=== PATIENT | male | born 1965 | race Caucasian/White ===

== ENCOUNTER → 2017-06-03 | Outpatient (CLI) | payer MEDICARE, OTHER ==
[~2017-06-03] MED LIST: ACET325 PO; ALBU2.5V5 NEB; ALBU90OI INH; ALPR.5 PO; AMLO10 PO; Advair Hfa 230-12 GM; Advair Hfa 230-12 GM INH; Aranesp40 MCG/0.4 SC; Augmentin 875-1 EACH PO; B Complex #11 EACH PO; BIOTIN5000 MCG PO; CALCIUM ACETAT667 MG PO; CARV25 PO; CEPH500 PO; CETI5 PO; CINA30 PO; CLON.2 PO; COMBIVENT RESPIM4 GM INH; Calcium Acetat667 MG PO; Calphron667 MG PO; Carbidopa-Levo1 EAC1 PO; Cleocin HCl300 MG PO; DEXA4 PO; DICL250 PO; DIPH50 PO; DOXY100; DOXY100 PO; DULO30 PO; ESCI10 PO; FAMO20 PO; FURO20 PO; FURO80 PO; Ferrous Sulfat325 MG PO; Fosrenol1000 MG PO; GABA100 PO; GABA600 PO; HYDR100 PO; LABE100 PO; LEVCAR2510 PO; LORA1 PO; MUPI1NAS; NEPHRO-VITE RX1 EACH PO; NEPHROCAPS QT1 EACH PO; Norco 10-325 T1 EACH PO; Norco 5-325 Ta1 EACH PO; ONDA4ODT MM; OXYC5 PO; PRED10; PROM25 PO; Percocet 5-3251 EACH PO; Prednisone20 MG PO; RENVELA0.8 GM PO; ROPI2 PO; ROXICODONE5 MG PO; SEVEC800; SEVEC800 PO; SODBIC650 PO; TRAM50 PO; VANCOMYCIN; VELTASSA; Vibramycin100 MG PO; [UNRECOGNIZED DRUG - CODE] PO
== END | disposition home or self-care (01) ==
LOC: LAB SHORT 10:07
DX: N18.6 End stage renal disease (principal); E78.5 Hyperlipidemia, unspecified
CPT/HCPCS: 84132

== ENCOUNTER → 2017-06-06 | Outpatient (CLI) | payer MEDICARE, OTHER ==
[2017-06-06 16:37] LABS: Vancomycin, Random 21.7 ug/mL
== END | disposition home or self-care (01) ==
LOC: LAB SHORT 16:14
PROVIDERS: Internal Medicine Nephrology
DX: Z51.81 Encounter for therapeutic drug level monitoring (principal); Z79.899 Other long term (current) drug therapy
CPT/HCPCS: 80202

== ENCOUNTER → 2017-06-17 | Outpatient (CLI) | payer MEDICARE, OTHER ==
[2017-06-17 17:52] LABS: Vancomycin, Trough 21.8 ug/mL (5.0-10.0)
== END | disposition home or self-care (01) ==
LOC: LAB SHORT 17:21
PROVIDERS: Internal Medicine Nephrology
DX: N18.6 End stage renal disease (principal)
CPT/HCPCS: 80202

== ENCOUNTER → 2017-06-22 | Outpatient (CLI) | payer MEDICARE, OTHER ==
[2017-06-22 16:22] LABS: Vancomycin, Random 17.8 ug/mL
== END | disposition home or self-care (01) ==
LOC: LAB 15:59
PROVIDERS: Internal Medicine Nephrology
DX: N18.6 End stage renal disease (principal); A49.9 Bacterial infection, unspecified
CPT/HCPCS: 80202

== ENCOUNTER 2017-09-25 10:38 | Inpatient (IN) | payer MEDICARE, OTHER ==
[~2017-09-25] VITALS: Ht 167.6 cm; Wt 67.8 kg
[~2017-09-25 10:38] MED LIST changes: -ALBU2.5V5 NEB; -ALBU90OI INH; -Advair Hfa 230-12 GM; -Augmentin 875-1 EACH PO; -CALCIUM ACETAT667 MG PO; -Calphron667 MG PO; -Cleocin HCl300 MG PO; -DICL250 PO; -DOXY100; -DOXY100 PO; -GABA600 PO; -MUPI1NAS; -NEPHRO-VITE RX1 EACH PO; -Norco 10-325 T1 EACH PO; -PROM25 PO; -Prednisone20 MG PO; -ROXICODONE5 MG PO; -SEVEC800; -VELTASSA; -Vibramycin100 MG PO; -[UNRECOGNIZED DRUG - CODE] PO
[2017-09-25 11:18] LABS: BASOPHILS ABSOLUTE AUTO 0.05 K/mm3 (0.00-0.23); BASOPHILS PERCENT AUTO 0 % (0-2); EOSINOPHILS ABSOLUTE AUTO 0.39 K/mm3 (0.00-0.68); EOSINOPHILS PERCENT AUTO 3 % (0-6); Hematocrit 32.8 % (37.0-53.0); Hemoglobin 10.5 g/dL (13.5-17.5); IMMATURE GRAN ABSOLUTE AUTO 0.05 K/mm3 (0.00-0.10); IMMATURE GRAN PERCENT AUTO 0 % (0-1); LYMPHOCYTES ABSOLUTE AUTO 0.92 K/mm3 (0.84-5.20); LYMPHOCYTES PERCENT AUTO 7 % (21-46); MONOCYTES ABSOLUTE AUTO 1.66 K/mm3 (0.16-1.47); MONOCYTES PERCENT AUTO 13 % (4-13); Mean Corpuscular HGB 28.9 pg (26.0-34.0); Mean Corpuscular Volume 90 fL (80-100); Mean Platelet Volume 9.4 fL (9.1-12.4); NEUTROPHILS ABSOLUTE AUTO 9.59 K/mm3 (1.96-9.15); NEUTROPHILS PERCENT AUTO 76 % (41-73); Platelet Count 353 K/mm3 (150-400); RDW Coefficient Variation 14.1 % (11.7-14.2); RDW Standard Deviation 46.6 fL (35.1-46.3); Red Blood Cell Count 3.63 M/mm3 (4.30-5.90); White Blood Cell Count 12.66 K/mm3 (4.00-11.30)
[2017-09-25 11:30] LABS: International Normalized Ratio 1.1; Prothrombin Time Results 11.5 Sec (9.7-11.5)
[2017-09-25 11:48] LABS: Albumin, Blood 3.3 g/dL (3.4-5.0); Albumin/Globulin Ratio 0.8 (0.8-1.8); Bilirubin, Total 0.9 mg/dL (0.1-1.0); Bun/Creatinine Ratio 7.2 (12.0-20.0); Calcium, Blood 8.1 mg/dL (8.5-10.1); Creatinine, Blood 12.3 mg/dL (0.60-1.20); Globulin, Blood 4.1 g/dL (2.2-4.0); Potassium, Blood 6.9 mmol/L (3.5-5.5); Total Protein, Blood 7.4 g/dL (6.4-8.2)
[2017-09-26 03:55] LABS: BASOPHILS ABSOLUTE AUTO 0.05 K/mm3 (0.00-0.23); BASOPHILS PERCENT AUTO 0 % (0-2); EOSINOPHILS ABSOLUTE AUTO 0.22 K/mm3 (0.00-0.68); EOSINOPHILS PERCENT AUTO 2 % (0-6); Hematocrit 31.7 % (37.0-53.0); Hemoglobin 10.2 g/dL (13.5-17.5); IMMATURE GRAN ABSOLUTE AUTO 0.03 K/mm3 (0.00-0.10); IMMATURE GRAN PERCENT AUTO 0 % (0-1); LYMPHOCYTES ABSOLUTE AUTO 0.97 K/mm3 (0.84-5.20); LYMPHOCYTES PERCENT AUTO 9 % (21-46); MONOCYTES ABSOLUTE AUTO 1.47 K/mm3 (0.16-1.47); MONOCYTES PERCENT AUTO 13 % (4-13); Mean Corpuscular HGB 28.7 pg (26.0-34.0); Mean Corpuscular HGB Conc 32.2 g/dL (31.5-36.5); Mean Corpuscular Volume 89 fL (80-100); Mean Platelet Volume 9.3 fL (9.1-12.4); NEUTROPHILS ABSOLUTE AUTO 8.38 K/mm3 (1.96-9.15); NEUTROPHILS PERCENT AUTO 75 % (41-73); Platelet Count 362 K/mm3 (150-400); RDW Coefficient Variation 14.1 % (11.7-14.2); RDW Standard Deviation 45.9 fL (35.1-46.3); Red Blood Cell Count 3.55 M/mm3 (4.30-5.90); White Blood Cell Count 11.12 K/mm3 (4.00-11.30)
[2017-09-26 04:18] LABS: Magnesium, Blood 2.6 mg/dL (1.6-2.4)
[2017-09-26 04:23] LABS: Albumin, Blood 2.7 g/dL (3.4-5.0); Anion Gap 12 mmol/L (6-16); Blood Urea Nitrogen 64 mg/dL (8-24); Bun/Creatinine Ratio 6.9 (12.0-20.0); CO2, Blood 29 mmol/L (21-32); Calcium, Blood 7.6 mg/dL (8.5-10.1); Chloride, Blood 95 mmol/L (98-108); Creatinine, Blood 9.25 mg/dL (0.60-1.20); Glomerular Filtration Rate 6 (60-); Glucose, Blood 101 mg/dL (70-99); Phosphorus, Blood 7.7 mg/dL (2.5-4.9); Sodium, Blood 136 mmol/L (136-145)
[2017-09-26 04:39] LABS: Potassium, Blood 4.9 mmol/L (3.5-5.5)
[2017-09-26] MEDS ORDERED: OXYC5 PO (11:36)
[2017-09-28 09:02] LABS: HCV Non Reactive (NR)
== END 2017-09-26 12:45 | disposition home or self-care (01) | DRG 640 ==
LOC: ER 10:38 → PCU 13:21 → ICUE 13:21 → PCU 15:32 → ICUE 16:15
PROVIDERS: Internal Medicine; Internal Medicine Nephrology; Physician Assistant
PROC: 5A1D70Z Performance of Urinary Filtration, Intermittent, Less than 6 Hours Per Day (ICD-10-PCS; principal; 2017-09-25)
PROC: 5A1D70Z Performance of Urinary Filtration, Intermittent, Less than 6 Hours Per Day (ICD-10-PCS; 2017-09-26)
DX: E87.5 Hyperkalemia (principal); N18.6 End stage renal disease; G93.41 Metabolic encephalopathy; I12.0 Hypertensive chronic kidney disease with stage 5 chronic kidney disease or end stage renal disease; D63.1 Anemia in chronic kidney disease; Z99.2 Dependence on renal dialysis; S01.81XA Laceration without foreign body of other part of head, initial encounter; W19.XXXA Unspecified fall, initial encounter; G25.81 Restless legs syndrome; E83.39 Other disorders of phosphorus metabolism; E83.41 Hypermagnesemia; Z91.15 Patient's noncompliance with renal dialysis
CPT/HCPCS: 12011; 36415; 70450; 72125; 80048; 80053; 80069; 80074; 82947; 83735; 85025; 85610; 86706; 93005; 93010; 96374; 96375; 99285; J0360; J0610; J1815; J2310; J3010

== ENCOUNTER 2017-10-15 04:16 | Emergency (ER) | payer MEDICARE, OTHER ==
[~2017-10-15] VITALS: Ht 167.6 cm; Wt 70.3 kg
[2017-10-15 06:03] LABS: BASOPHILS ABSOLUTE AUTO 0.06 K/mm3 (0.00-0.23); BASOPHILS PERCENT AUTO 1 % (0-2); EOSINOPHILS ABSOLUTE AUTO 0.48 K/mm3 (0.00-0.68); EOSINOPHILS PERCENT AUTO 5 % (0-6); Hematocrit 28.8 % (37.0-53.0); IMMATURE GRAN ABSOLUTE AUTO 0.03 K/mm3 (0.00-0.10); IMMATURE GRAN PERCENT AUTO 0 % (0-1); LYMPHOCYTES ABSOLUTE AUTO 1.05 K/mm3 (0.84-5.20); LYMPHOCYTES PERCENT AUTO 12 % (21-46); MONOCYTES ABSOLUTE AUTO 0.81 K/mm3 (0.16-1.47); MONOCYTES PERCENT AUTO 9 % (4-13); Mean Corpuscular HGB 28.8 pg (26.0-34.0); Mean Corpuscular HGB Conc 31.3 g/dL (31.5-36.5); Mean Corpuscular Volume 92 fL (80-100); Mean Platelet Volume 9.7 fL (9.1-12.4); NEUTROPHILS ABSOLUTE AUTO 6.66 K/mm3 (1.96-9.15); NEUTROPHILS PERCENT AUTO 73 % (41-73); Platelet Count 348 K/mm3 (150-400); RDW Coefficient Variation 14.3 % (11.7-14.2); RDW Standard Deviation 48.2 fL (35.1-46.3); Red Blood Cell Count 3.13 M/mm3 (4.30-5.90); White Blood Cell Count 9.09 K/mm3 (4.00-11.30)
[2017-10-15 06:14] LABS: Albumin/Globulin Ratio 0.8 (0.8-1.8); Bilirubin, Total 0.4 mg/dL (0.1-1.0); Bun/Creatinine Ratio 10.5 (12.0-20.0); Calcium, Blood 8.3 mg/dL (8.5-10.1); Creatinine, Blood 4.39 mg/dL (0.60-1.20); Globulin, Blood 3.9 g/dL (2.2-4.0); Potassium, Blood 5.4 mmol/L (3.5-5.5); Total Protein, Blood 6.9 g/dL (6.4-8.2)
[2017-10-15] MEDS ORDERED: Augmentin 875-1 EACH PO (07:38)
== END 2017-10-15 07:53 | disposition left against medical advice (07) ==
LOC: ER 04:16
PROVIDERS: Emergency Medicine
DX: I16.0 Hypertensive urgency (principal); I12.0 Hypertensive chronic kidney disease with stage 5 chronic kidney disease or end stage renal disease; N18.6 End stage renal disease; K04.7 Periapical abscess without sinus; R09.02 Hypoxemia; J45.909 Unspecified asthma, uncomplicated; Z99.2 Dependence on renal dialysis; Z79.899 Other long term (current) drug therapy
CPT/HCPCS: 36415; 71046; 80053; 85025; 94644; 96374; 96375; 99284; J1100; J1200; J1940; J3490

== ENCOUNTER 2017-10-17 12:24 | Observation (INO) | payer MEDICARE, OTHER ==
[~2017-10-17] VITALS: Ht 167.6 cm; Wt 58.6 kg
[~2017-10-17 12:24] MED LIST changes: +Augmentin 875-1 EACH PO
[2017-10-17 13:18] LABS: BASOPHILS ABSOLUTE AUTO 0.08 K/mm3 (0.00-0.23); BASOPHILS PERCENT AUTO 1 % (0-2); EOSINOPHILS ABSOLUTE AUTO 0.61 K/mm3 (0.00-0.68); EOSINOPHILS PERCENT AUTO 5 % (0-6); Hematocrit 29.6 % (37.0-53.0); Hemoglobin 9.1 g/dL (13.5-17.5); IMMATURE GRAN ABSOLUTE AUTO 0.05 K/mm3 (0.00-0.10); IMMATURE GRAN PERCENT AUTO 0 % (0-1); LYMPHOCYTES ABSOLUTE AUTO 1.04 K/mm3 (0.84-5.20); LYMPHOCYTES PERCENT AUTO 9 % (21-46); MONOCYTES ABSOLUTE AUTO 1.34 K/mm3 (0.16-1.47); MONOCYTES PERCENT AUTO 12 % (4-13); Mean Corpuscular HGB 27.6 pg (26.0-34.0); Mean Corpuscular HGB Conc 30.7 g/dL (31.5-36.5); Mean Corpuscular Volume 90 fL (80-100); Mean Platelet Volume 9.5 fL (9.1-12.4); NEUTROPHILS ABSOLUTE AUTO 8.32 K/mm3 (1.96-9.15); NEUTROPHILS PERCENT AUTO 73 % (41-73); Platelet Count 394 K/mm3 (150-400); RDW Coefficient Variation 14.8 % (11.7-14.2); White Blood Cell Count 11.44 K/mm3 (4.00-11.30)
[2017-10-17 13:32] LABS: Troponin I 0.024 ng/mL (0.000-0.040)
[2017-10-17 13:44] LABS: Albumin, Blood 3.1 g/dL (3.4-5.0); Albumin/Globulin Ratio 0.8 (0.8-1.8); Bilirubin, Total 0.6 mg/dL (0.1-1.0); Bun/Creatinine Ratio 11.9 (12.0-20.0); Calcium, Blood 8.1 mg/dL (8.5-10.1); Creatinine, Blood 7.21 mg/dL (0.60-1.20); Globulin, Blood 3.9 g/dL (2.2-4.0); Potassium, Blood 6.1 mmol/L (3.5-5.5)
[2017-10-17 14:52] LABS: Source, Urine Catheter
[2017-10-17 14:56] LABS: Appearance, Urine Clear (Clear); Bilirubin, Urine Neg (Neg); Blood, Urine Neg (Neg); Color, Urine Yellow (P-Yellow); Glucose Qualitative, Urine 2+ (Neg); Ketones, Urine Neg (Neg); Leukocyte Esterase, Urine Neg (Neg); Nitrite, Urine Neg (Neg); Protein, Urine 3+ (Neg); Urobilinogen, Urine NORM (Normal)
[2017-10-17 15:18] LABS: U Amphetamine Screen Not Detected; U Barbituate Screen Not Detected; U Benzodiazapine Screen Not Detected; U Buprenorphine Screen Not Detected; U Cannabinoids Screen Not Detected; U Cocaine Screen Not Detected; U Methadone Screen Not Detected; U Methamphetamine Screen Not Detected; U Opiates Screen Not Detected; U Oxycodone Screen DETECTED; U Phencyclidine Screen Not Detected; U Propoxyphene Screen Not Detected
[2017-10-17 15:19] LABS: Bacteria Few /hpf; Red Blood Cells, Urine 0-2 /hpf (0-2); Squamous Epithelial Cells Few /hpf (Few); White Blood Cells, Urine 0-2 /hpf (0-5)
[2017-10-17] MEDS ORDERED: CARV25 PO (19:33)
[2017-10-17] MEDS ORDERED: SEVEC800 (19:35)
[2017-10-17] MEDS ORDERED: HYDR100 PO (19:36)
[2017-10-17] MEDS ORDERED: FURO80 PO (19:37)
[2017-10-18 05:02] LABS: Hematocrit 27.8 % (37.0-53.0); Hemoglobin 8.8 g/dL (13.5-17.5)
[2017-10-18 05:29] LABS: Magnesium, Blood 2.5 mg/dL (1.6-2.4)
[2017-10-18 05:30] LABS: Albumin, Blood 2.8 g/dL (3.4-5.0); Anion Gap 10 mmol/L (6-16); Blood Urea Nitrogen 62 mg/dL (8-24); Bun/Creatinine Ratio 10.4 (12.0-20.0); CO2, Blood 30 mmol/L (21-32); Calcium, Blood 8.1 mg/dL (8.5-10.1); Chloride, Blood 95 mmol/L (98-108); Creatinine, Blood 5.97 mg/dL (0.60-1.20); Glomerular Filtration Rate 11 (60-); Glucose, Blood 114 mg/dL (70-99); Phosphorus, Blood 5.5 mg/dL (2.5-4.9); Sodium, Blood 135 mmol/L (136-145)
[2017-10-19 08:39] LABS: Hematocrit 32.1 % (37.0-53.0); Hemoglobin 10.4 g/dL (13.5-17.5)
[2017-10-19 08:56] LABS: Anion Gap 9 mmol/L (6-16); Blood Urea Nitrogen 69 mg/dL (8-24); Bun/Creatinine Ratio 10.7 (12.0-20.0); CO2, Blood 28 mmol/L (21-32); Calcium, Blood 8.3 mg/dL (8.5-10.1); Chloride, Blood 95 mmol/L (98-108); Creatinine, Blood 6.43 mg/dL (0.60-1.20); Glomerular Filtration Rate 10 (60-); Glucose, Blood 120 mg/dL (70-99); Magnesium, Blood 2.6 mg/dL (1.6-2.4); Phosphorus, Blood 5.5 mg/dL (2.5-4.9); Potassium, Blood 5.2 mmol/L (3.5-5.5); Sodium, Blood 132 mmol/L (136-145)
[2017-10-19] MEDS ORDERED: DOXY100 PO (11:06)
[2017-10-25] MEDS ORDERED: CEPH500 PO (04:32)
[2017-10-25] MEDS ORDERED: DOXY100 (04:51)
== END 2017-10-19 13:10 | disposition home or self-care (01) ==
LOC: ER 12:24 → MEDS 16:00
PROVIDERS: Emergency Medicine; Internal Medicine; Internal Medicine Nephrology
DX: E87.5 Hyperkalemia (principal); E87.70 Fluid overload, unspecified; I12.0 Hypertensive chronic kidney disease with stage 5 chronic kidney disease or end stage renal disease; N18.6 End stage renal disease; D63.1 Anemia in chronic kidney disease; G92 Toxic encephalopathy; T40.2X5A Adverse effect of other opioids, initial encounter; G25.2 Other specified forms of tremor; L13.1 Subcorneal pustular dermatitis; K12.2 Cellulitis and abscess of mouth; J45.909 Unspecified asthma, uncomplicated; Z88.8 Allergy status to other drugs, medicaments and biological substances; Z99.2 Dependence on renal dialysis; Z79.899 Other long term (current) drug therapy
CPT/HCPCS: 36415; 36430; 71046; 80053; 80069; 81001; 83735; 83880; 84484; 85014; 85018; 85025; 86850; 86900; 86901; 86923; 87086; 93005; 93010; 96372; 96374; 99285; G0257; G0378; J0881; J1644; J2310; P9016

== ENCOUNTER 2017-10-28 01:31 | Emergency (ER) | payer MEDICARE, OTHER ==
[~2017-10-28] VITALS: Ht 167.6 cm; Wt 69.8 kg
[~2017-10-28 01:31] MED LIST changes: +DOXY100; +DOXY100 PO; +SEVEC800
[2017-10-28 02:13] LABS: BASOPHILS ABSOLUTE AUTO 0.04 K/mm3 (0.00-0.23); BASOPHILS PERCENT AUTO 0 % (0-2); EOSINOPHILS PERCENT AUTO 8 % (0-6); Hematocrit 32.1 % (37.0-53.0); Hemoglobin 9.9 g/dL (13.5-17.5); IMMATURE GRAN PERCENT AUTO 1 % (0-1); LYMPHOCYTES ABSOLUTE AUTO 1.42 K/mm3 (0.84-5.20); LYMPHOCYTES PERCENT AUTO 14 % (21-46); MONOCYTES ABSOLUTE AUTO 1.43 K/mm3 (0.16-1.47); MONOCYTES PERCENT AUTO 14 % (4-13); Mean Corpuscular HGB Conc 30.8 g/dL (31.5-36.5); Mean Corpuscular Volume 91 fL (80-100); Mean Platelet Volume 9.7 fL (9.1-12.4); NEUTROPHILS PERCENT AUTO 63 % (41-73); Platelet Count 259 K/mm3 (150-400); RDW Coefficient Variation 15.2 % (11.7-14.2); RDW Standard Deviation 50.1 fL (35.1-46.3); Red Blood Cell Count 3.53 M/mm3 (4.30-5.90); White Blood Cell Count 10.29 K/mm3 (4.00-11.30)
[2017-10-28 02:24] LABS: Albumin, Blood 3.2 g/dL (3.4-5.0); Albumin/Globulin Ratio 0.8 (0.8-1.8); Bilirubin, Total 0.6 mg/dL (0.1-1.0); Bun/Creatinine Ratio 7.4 (12.0-20.0); Creatinine, Blood 4.17 mg/dL (0.60-1.20); Globulin, Blood 3.8 g/dL (2.2-4.0); Potassium, Blood 5.2 mmol/L (3.5-5.5)
[2017-10-28] MEDS ORDERED: Cleocin HCl300 MG PO (04:36)
== END 2017-10-28 04:48 | disposition home or self-care (01) ==
LOC: ER 01:31
PROVIDERS: Emergency Medicine
DX: K04.7 Periapical abscess without sinus (principal); M27.2 Inflammatory conditions of jaws; I10 Essential (primary) hypertension; J45.909 Unspecified asthma, uncomplicated; Z88.8 Allergy status to other drugs, medicaments and biological substances; Z79.899 Other long term (current) drug therapy; Z99.2 Dependence on renal dialysis
CPT/HCPCS: 80053; 85025; J0171; J1200; J2930; J3490

== ENCOUNTER 2017-11-12 23:56 | Emergency (ER) | payer MEDICARE, OTHER ==
[~2017-11-12] VITALS: Ht 167.6 cm; Wt 69.8 kg
[~2017-11-12 23:56] MED LIST changes: +Cleocin HCl300 MG PO
[2017-11-13] MEDS ORDERED: FURO80 PO (00:10)
[2017-11-13] MEDS ORDERED: NEPHRO-VITE RX1 EACH PO (00:11)
[2017-11-13] MEDS ORDERED: Prednisone20 MG PO (00:15)
== END 2017-11-13 00:28 | disposition home or self-care (01) ==
LOC: ER 23:56
DX: L25.9 Unspecified contact dermatitis, unspecified cause (principal); I10 Essential (primary) hypertension; J45.909 Unspecified asthma, uncomplicated; Z88.1 Allergy status to other antibiotic agents; Z91.048 Other nonmedicinal substance allergy status; Z88.8 Allergy status to other drugs, medicaments and biological substances; Z79.899 Other long term (current) drug therapy; Z99.2 Dependence on renal dialysis
CPT/HCPCS: 96372; 99283; J1100

== ENCOUNTER 2017-11-17 11:55 | Emergency (ER) | payer MEDICARE, OTHER ==
[~2017-11-17] VITALS: Ht 167.6 cm; Wt 69.8 kg
[~2017-11-17 11:55] MED LIST changes: +NEPHRO-VITE RX1 EACH PO; +Prednisone20 MG PO
[2017-11-17 12:55] LABS: BASOPHILS ABSOLUTE AUTO 0.02 K/mm3 (0.00-0.23); BASOPHILS PERCENT AUTO 0 % (0-2); EOSINOPHILS PERCENT AUTO 0 % (0-6); Hematocrit 31.4 % (37.0-53.0); Hemoglobin 9.6 g/dL (13.5-17.5); IMMATURE GRAN ABSOLUTE AUTO 0.05 K/mm3 (0.00-0.10); IMMATURE GRAN PERCENT AUTO 1 % (0-1); LYMPHOCYTES ABSOLUTE AUTO 0.55 K/mm3 (0.84-5.20); LYMPHOCYTES PERCENT AUTO 6 % (21-46); MONOCYTES PERCENT AUTO 6 % (4-13); Mean Corpuscular HGB 28.1 pg (26.0-34.0); Mean Corpuscular HGB Conc 30.6 g/dL (31.5-36.5); Mean Corpuscular Volume 92 fL (80-100); Mean Platelet Volume 9.4 fL (9.1-12.4); NEUTROPHILS ABSOLUTE AUTO 7.82 K/mm3 (1.96-9.15); NEUTROPHILS PERCENT AUTO 87 % (41-73); Platelet Count 326 K/mm3 (150-400); RDW Coefficient Variation 15.7 % (11.7-14.2); RDW Standard Deviation 52.2 fL (35.1-46.3); Red Blood Cell Count 3.42 M/mm3 (4.30-5.90); White Blood Cell Count 8.94 K/mm3 (4.00-11.30)
[2017-11-17 13:15] LABS: Albumin, Blood 3.7 g/dL (3.4-5.0); Bilirubin, Total 0.5 mg/dL (0.1-1.0); Calcium, Blood 8.8 mg/dL (8.5-10.1); Creatinine, Blood 5.2 mg/dL (0.60-1.20); Globulin, Blood 3.7 g/dL (2.2-4.0); Potassium, Blood 5.4 mmol/L (3.5-5.5); Total Protein, Blood 7.4 g/dL (6.4-8.2); Troponin I 0.111 ng/mL (0.000-0.040)
== END 2017-11-17 15:46 | disposition left against medical advice (07) ==
LOC: ER 11:55
PROVIDERS: Emergency Medicine
DX: R07.9 Chest pain, unspecified (principal); R79.89 Other specified abnormal findings of blood chemistry; Z88.1 Allergy status to other antibiotic agents; Z88.8 Allergy status to other drugs, medicaments and biological substances; Z79.899 Other long term (current) drug therapy; Z79.891 Long term (current) use of opiate analgesic; I10 Essential (primary) hypertension; J45.909 Unspecified asthma, uncomplicated
CPT/HCPCS: 36415; 71046; 80053; 84484; 85025; 93005; 93010; 99284

== ENCOUNTER 2017-11-22 01:35 | Observation (INO) | payer MEDICARE, OTHER ==
[~2017-11-22] VITALS: Ht 170.2 cm; Wt 73.9 kg
[2017-11-22 02:36] LABS: BASOPHILS ABSOLUTE AUTO 0.01 K/mm3 (0.00-0.23); BASOPHILS PERCENT AUTO 0 % (0-2); EOSINOPHILS ABSOLUTE AUTO 0.01 K/mm3 (0.00-0.68); EOSINOPHILS PERCENT AUTO 0 % (0-6); Hematocrit 31.5 % (37.0-53.0); Hemoglobin 9.7 g/dL (13.5-17.5); IMMATURE GRAN PERCENT AUTO 2 % (0-1); LYMPHOCYTES ABSOLUTE AUTO 0.39 K/mm3 (0.84-5.20); LYMPHOCYTES PERCENT AUTO 3 % (21-46); MONOCYTES ABSOLUTE AUTO 0.79 K/mm3 (0.16-1.47); MONOCYTES PERCENT AUTO 7 % (4-13); Mean Corpuscular HGB 28.5 pg (26.0-34.0); Mean Corpuscular HGB Conc 30.8 g/dL (31.5-36.5); Mean Corpuscular Volume 93 fL (80-100); Mean Platelet Volume 9.7 fL (9.1-12.4); NEUTROPHILS ABSOLUTE AUTO 10.43 K/mm3 (1.96-9.15); NEUTROPHILS PERCENT AUTO 88 % (41-73); Platelet Count 245 K/mm3 (150-400); RDW Coefficient Variation 16.5 % (11.7-14.2); RDW Standard Deviation 55.8 fL (35.1-46.3); White Blood Cell Count 11.83 K/mm3 (4.00-11.30)
[2017-11-22 02:49] LABS: Albumin, Blood 3.4 g/dL (3.4-5.0); Bilirubin, Total 0.4 mg/dL (0.1-1.0); Bun/Creatinine Ratio 8.7 (12.0-20.0); Calcium, Blood 7.6 mg/dL (8.5-10.1); Creatinine, Blood 4.93 mg/dL (0.60-1.20); Globulin, Blood 3.5 g/dL (2.2-4.0); Potassium, Blood 5.6 mmol/L (3.5-5.5); Total Protein, Blood 6.9 g/dL (6.4-8.2); Troponin I 0.089 ng/mL (0.000-0.040)
[2017-11-22 08:42] LABS: Albumin, Blood 3.2 g/dL (3.4-5.0); Anion Gap 10 mmol/L (6-16); Blood Urea Nitrogen 52 mg/dL (8-24); Bun/Creatinine Ratio 9.6 (12.0-20.0); CO2, Blood 31 mmol/L (21-32); Calcium, Blood 8.1 mg/dL (8.5-10.1); Chloride, Blood 97 mmol/L (98-108); Creatinine, Blood 5.39 mg/dL (0.60-1.20); Glomerular Filtration Rate 12 (60-); Glucose, Blood 148 mg/dL (70-99); Potassium, Blood 5.6 mmol/L (3.5-5.5); Sodium, Blood 138 mmol/L (136-145)
[2017-11-23 04:41] LABS: BASOPHILS ABSOLUTE AUTO 0.02 K/mm3 (0.00-0.23); BASOPHILS PERCENT AUTO 0 % (0-2); EOSINOPHILS ABSOLUTE AUTO 0.11 K/mm3 (0.00-0.68); EOSINOPHILS PERCENT AUTO 1 % (0-6); Hematocrit 34.4 % (37.0-53.0); Hemoglobin 10.5 g/dL (13.5-17.5); IMMATURE GRAN ABSOLUTE AUTO 0.18 K/mm3 (0.00-0.10); IMMATURE GRAN PERCENT AUTO 2 % (0-1); LYMPHOCYTES ABSOLUTE AUTO 1.69 K/mm3 (0.84-5.20); LYMPHOCYTES PERCENT AUTO 15 % (21-46); MONOCYTES ABSOLUTE AUTO 1.73 K/mm3 (0.16-1.47); MONOCYTES PERCENT AUTO 16 % (4-13); Mean Corpuscular HGB 28.3 pg (26.0-34.0); Mean Corpuscular HGB Conc 30.5 g/dL (31.5-36.5); Mean Corpuscular Volume 93 fL (80-100); Mean Platelet Volume 9.6 fL (9.1-12.4); NEUTROPHILS PERCENT AUTO 67 % (41-73); Platelet Count 236 K/mm3 (150-400); RDW Coefficient Variation 16.6 % (11.7-14.2); RDW Standard Deviation 56.4 fL (35.1-46.3); Red Blood Cell Count 3.71 M/mm3 (4.30-5.90); White Blood Cell Count 11.13 K/mm3 (4.00-11.30)
[2017-11-23 05:08] LABS: Albumin, Blood 3.5 g/dL (3.4-5.0); Anion Gap 11 mmol/L (6-16); Blood Urea Nitrogen 44 mg/dL (8-24); Bun/Creatinine Ratio 8.7 (12.0-20.0); CO2, Blood 32 mmol/L (21-32); Calcium, Blood 8.8 mg/dL (8.5-10.1); Chloride, Blood 95 mmol/L (98-108); Creatinine, Blood 5.04 mg/dL (0.60-1.20); Glomerular Filtration Rate 13 (60-); Glucose, Blood 92 mg/dL (70-99); Magnesium, Blood 2.4 mg/dL (1.6-2.4); Phosphorus, Blood 6.6 mg/dL (2.5-4.9); Potassium, Blood 5.9 mmol/L (3.5-5.5); Sodium, Blood 138 mmol/L (136-145)
== END 2017-11-23 10:30 | disposition home or self-care (01) ==
LOC: ER 01:35 → MEDS 01:36 → PCU 01:36 → ER 04:05 → MEDS 04:05 → PCU 04:05 → MEDS 04:12 → PCU 04:13 → MEDS 17:27 → PCU 17:27 → MEDS 23:00 → ENPENDDIS 11-23 08:00 → MEDS 11-23 10:30
PROVIDERS: Emergency Medicine; Family Medicine; Internal Medicine Nephrology
DX: L02.11 Cutaneous abscess of neck (principal); R42 Dizziness and giddiness; I12.0 Hypertensive chronic kidney disease with stage 5 chronic kidney disease or end stage renal disease; N18.6 End stage renal disease; R60.0 Localized edema; D63.1 Anemia in chronic kidney disease; E87.5 Hyperkalemia; R55 Syncope and collapse; L73.1 Pseudofolliculitis barbae; E21.3 Hyperparathyroidism, unspecified; Z98.890 Other specified postprocedural states; Z88.1 Allergy status to other antibiotic agents; Z88.8 Allergy status to other drugs, medicaments and biological substances; Z79.899 Other long term (current) drug therapy; J45.909 Unspecified asthma, uncomplicated; Z99.2 Dependence on renal dialysis
CPT/HCPCS: 36415; 80053; 80069; 83036; 83735; 84443; 84484; 85014; 85018; 85025; 93005; 93010; 99285; G0257; G0378; J0610; J0881; J1815; Q0163

== ENCOUNTER 2017-12-20 06:48 | Emergency (ER) | payer MEDICARE, OTHER ==
[~2017-12-20] VITALS: Ht 167.6 cm; Wt 70.8 kg
[2017-12-20] MEDS ORDERED: MUPI1NAS (07:00)
== END 2017-12-20 07:15 | disposition home or self-care (01) ==
LOC: ER 06:48
DX: J34.0 Abscess, furuncle and carbuncle of nose (principal); Z88.8 Allergy status to other drugs, medicaments and biological substances; Z88.1 Allergy status to other antibiotic agents; Z79.899 Other long term (current) drug therapy; Z79.891 Long term (current) use of opiate analgesic; Z79.2 Long term (current) use of antibiotics; I10 Essential (primary) hypertension; J45.909 Unspecified asthma, uncomplicated
CPT/HCPCS: 99281

== ENCOUNTER 2018-01-13 12:00 | Observation (INO) | payer MEDICARE, OTHER ==
[~2018-01-13] VITALS: Ht 165.1 cm; Wt 66.9 kg
[~2018-01-13 12:00] MED LIST changes: +CALCIUM ACETAT667 MG PO; +MUPI1NAS; +Norco 10-325 T1 EACH PO; +ROXICODONE5 MG PO; +[UNRECOGNIZED DRUG - CODE] PO
[2018-01-13] MEDS ORDERED: CINA30 PO (12:27)
[2018-01-13] MEDS ORDERED: Calphron667 MG PO (12:29)
[2018-01-13] MEDS ORDERED: Advair Hfa 230-12 GM (12:30)
[2018-01-13] MEDS ORDERED: NEPHRO-VITE RX1 EACH PO (12:31)
[2018-01-13 12:36] LABS: BASOPHILS ABSOLUTE AUTO 0.05 K/mm3 (0.00-0.23); BASOPHILS PERCENT AUTO 1 % (0-2); EOSINOPHILS ABSOLUTE AUTO 0.54 K/mm3 (0.00-0.68); EOSINOPHILS PERCENT AUTO 5 % (0-6); Hematocrit 28.5 % (37.0-53.0); IMMATURE GRAN ABSOLUTE AUTO 0.04 K/mm3 (0.00-0.10); IMMATURE GRAN PERCENT AUTO 0 % (0-1); LYMPHOCYTES ABSOLUTE AUTO 1.04 K/mm3 (0.84-5.20); LYMPHOCYTES PERCENT AUTO 9 % (21-46); MONOCYTES ABSOLUTE AUTO 1.69 K/mm3 (0.16-1.47); MONOCYTES PERCENT AUTO 15 % (4-13); Mean Corpuscular HGB 27.4 pg (26.0-34.0); Mean Corpuscular HGB Conc 31.6 g/dL (31.5-36.5); Mean Corpuscular Volume 87 fL (80-100); Mean Platelet Volume 9.5 fL (9.1-12.4); NEUTROPHILS PERCENT AUTO 70 % (41-73); Platelet Count 384 K/mm3 (150-400); RDW Coefficient Variation 16.1 % (11.7-14.2); RDW Standard Deviation 51.3 fL (35.1-46.3); Red Blood Cell Count 3.29 M/mm3 (4.30-5.90); White Blood Cell Count 11.06 K/mm3 (4.00-11.30)
[2018-01-13 12:53] LABS: Albumin/Globulin Ratio 0.7 (0.8-1.8); Bilirubin, Total 0.4 mg/dL (0.1-1.0); Bun/Creatinine Ratio 6.9 (12.0-20.0); Calcium, Blood 8.9 mg/dL (8.5-10.1); Creatinine, Blood 6.93 mg/dL (0.60-1.20); Globulin, Blood 4.3 g/dL (2.2-4.0); Total Protein, Blood 7.3 g/dL (6.4-8.2); Troponin I 0.311 ng/mL (0.000-0.040)
[2018-01-14 01:48] LABS: Hematocrit 28.6 % (37.0-53.0); Hemoglobin 8.7 g/dL (13.5-17.5)
[2018-01-14 02:05] LABS: Albumin, Blood 2.4 g/dL (3.4-5.0); Anion Gap 9 mmol/L (6-16); Blood Urea Nitrogen 38 mg/dL (8-24); Bun/Creatinine Ratio 6.7 (12.0-20.0); CO2, Blood 32 mmol/L (21-32); Calcium, Blood 8.2 mg/dL (8.5-10.1); Chloride, Blood 96 mmol/L (98-108); Creatinine, Blood 5.63 mg/dL (0.60-1.20); Glomerular Filtration Rate 11 (60-); Glucose, Blood 123 mg/dL (70-99); Magnesium, Blood 2.2 mg/dL (1.6-2.4); Phosphorus, Blood 5.1 mg/dL (2.5-4.9); Potassium, Blood 4.6 mmol/L (3.5-5.5); Sodium, Blood 137 mmol/L (136-145); Troponin I 0.251 ng/mL (0.000-0.040)
== END 2018-01-14 16:10 | disposition home or self-care (01) ==
LOC: ER 12:00 → MEDS 12:01 → ENPENDDIS 01-14 14:00 → MEDS 01-14 16:10
PROVIDERS: Hospitalist; Physician Assistant
DX: I13.2 Hypertensive heart and chronic kidney disease with heart failure and with stage 5 chronic kidney disease, or end stage renal disease (principal); I50.21 Acute systolic (congestive) heart failure; N18.6 End stage renal disease; E87.70 Fluid overload, unspecified; G89.29 Other chronic pain; Z88.5 Allergy status to narcotic agent; Z88.1 Allergy status to other antibiotic agents; Z88.8 Allergy status to other drugs, medicaments and biological substances; Z79.899 Other long term (current) drug therapy
CPT/HCPCS: 36415; 71046; 80048; 80053; 80069; 83735; 83880; 84484; 85014; 85018; 85025; 93005; 93010; 94640; 94760; 96372; 99284-25; G0257; G0378; J0881; J1650; J7030

== ENCOUNTER 2018-02-10 16:27 | Inpatient (IN) | payer MEDICARE, OTHER ==
[~2018-02-10] VITALS: Ht 167.6 cm; Wt 68.0 kg
[~2018-02-10 16:27] MED LIST changes: +Advair Hfa 230-12 GM; +Calphron667 MG PO
[2018-02-10 16:45] LABS: Chloride (POC) 88 mmol/L (98-108); Creatinine (POC) 7.6 mg/dL (0.8-1.3); Glucose (ISTAT POC) 116 mg/dL (70-99); Hemoglobin (POC) 10.2 g/dL (13.5-17.5); Sodium (POC) 129 mmol/L (135-148); Total CO2 (POC) 31 mmol/L (21-32)
[2018-02-10 16:55] LABS: BASOPHILS ABSOLUTE AUTO 0.09 K/mm3 (0.00-0.23); BASOPHILS PERCENT AUTO 1 % (0-2); EOSINOPHILS ABSOLUTE AUTO 0.33 K/mm3 (0.00-0.68); EOSINOPHILS PERCENT AUTO 2 % (0-6); Hematocrit 30.5 % (37.0-53.0); Hemoglobin 9.4 g/dL (13.5-17.5); IMMATURE GRAN ABSOLUTE AUTO 0.07 K/mm3 (0.00-0.10); IMMATURE GRAN PERCENT AUTO 0 % (0-1); LYMPHOCYTES ABSOLUTE AUTO 0.77 K/mm3 (0.84-5.20); LYMPHOCYTES PERCENT AUTO 5 % (21-46); MONOCYTES ABSOLUTE AUTO 1.86 K/mm3 (0.16-1.47); MONOCYTES PERCENT AUTO 11 % (4-13); Mean Corpuscular HGB 26.4 pg (26.0-34.0); Mean Corpuscular HGB Conc 30.8 g/dL (31.5-36.5); Mean Corpuscular Volume 86 fL (80-100); Mean Platelet Volume 9.3 fL (9.1-12.4); NEUTROPHILS ABSOLUTE AUTO 13.34 K/mm3 (1.96-9.15); NEUTROPHILS PERCENT AUTO 81 % (41-73); Platelet Count 309 K/mm3 (150-400); RDW Coefficient Variation 17.2 % (11.7-14.2); Red Blood Cell Count 3.56 M/mm3 (4.30-5.90); White Blood Cell Count 16.46 K/mm3 (4.00-11.30)
[2018-02-10 17:15] LABS: Albumin, Blood 3.1 g/dL (3.4-5.0); Albumin/Globulin Ratio 0.7 (0.8-1.8); Bun/Creatinine Ratio 7.8 (12.0-20.0); Calcium, Blood 8.8 mg/dL (8.5-10.1); Creatinine, Blood 7.27 mg/dL (0.60-1.20); Globulin, Blood 4.4 g/dL (2.2-4.0); Total Protein, Blood 7.5 g/dL (6.4-8.2)
[2018-02-10 18:05] LABS: Magnesium, Blood 2.5 mg/dL (1.6-2.4); Phosphorus, Blood 6.7 mg/dL (2.5-4.9)
[2018-02-10 23:52] LABS: Bun/Creatinine Ratio 7.5 (12.0-20.0); Calcium, Blood 8.4 mg/dL (8.5-10.1); Creatinine, Blood 5.77 mg/dL (0.60-1.20); Potassium, Blood 4.5 mmol/L (3.5-5.5)
[2018-02-11] LABS: Troponin I 0.612 ng/mL (0.000-0.040)
[2018-02-11 04:51] LABS: BASOPHILS ABSOLUTE AUTO 0.09 K/mm3 (0.00-0.23); BASOPHILS PERCENT AUTO 1 % (0-2); EOSINOPHILS PERCENT AUTO 4 % (0-6); Hematocrit 27.6 % (37.0-53.0); Hemoglobin 8.3 g/dL (13.5-17.5); IMMATURE GRAN ABSOLUTE AUTO 0.04 K/mm3 (0.00-0.10); IMMATURE GRAN PERCENT AUTO 0 % (0-1); LYMPHOCYTES ABSOLUTE AUTO 0.75 K/mm3 (0.84-5.20); LYMPHOCYTES PERCENT AUTO 7 % (21-46); MONOCYTES ABSOLUTE AUTO 1.47 K/mm3 (0.16-1.47); MONOCYTES PERCENT AUTO 14 % (4-13); Mean Corpuscular HGB 26.6 pg (26.0-34.0); Mean Corpuscular HGB Conc 30.1 g/dL (31.5-36.5); Mean Platelet Volume 9.6 fL (9.1-12.4); NEUTROPHILS ABSOLUTE AUTO 7.73 K/mm3 (1.96-9.15); NEUTROPHILS PERCENT AUTO 74 % (41-73); Platelet Count 276 K/mm3 (150-400); RDW Coefficient Variation 17.2 % (11.7-14.2); RDW Standard Deviation 55.5 fL (35.1-46.3); Red Blood Cell Count 3.12 M/mm3 (4.30-5.90); White Blood Cell Count 10.48 K/mm3 (4.00-11.30)
[2018-02-11 05:00] LABS: Mean Corpuscular Volume 89 fL (80-100)
[2018-02-11 05:14] LABS: Albumin, Blood 2.6 g/dL (3.4-5.0); Anion Gap 6 mmol/L (6-16); Blood Urea Nitrogen 49 mg/dL (8-24); Bun/Creatinine Ratio 7.8 (12.0-20.0); CO2, Blood 35 mmol/L (21-32); Calcium, Blood 8.2 mg/dL (8.5-10.1); Chloride, Blood 94 mmol/L (98-108); Creatinine, Blood 6.31 mg/dL (0.60-1.20); Glomerular Filtration Rate 10 (60-); Glucose, Blood 114 mg/dL (70-99); Magnesium, Blood 2.4 mg/dL (1.6-2.4); Phosphorus, Blood 6.7 mg/dL (2.5-4.9); Potassium, Blood 5.1 mmol/L (3.5-5.5); Sodium, Blood 135 mmol/L (136-145)
[2018-02-12 04:37] LABS: Hematocrit 28.5 % (37.0-53.0); Hemoglobin 8.5 g/dL (13.5-17.5)
[2018-02-12 04:59] LABS: Albumin, Blood 2.9 g/dL (3.4-5.0); Anion Gap 10 mmol/L (6-16); Blood Urea Nitrogen 54 mg/dL (8-24); Bun/Creatinine Ratio 8.7 (12.0-20.0); CO2, Blood 31 mmol/L (21-32); Calcium, Blood 8.1 mg/dL (8.5-10.1); Chloride, Blood 95 mmol/L (98-108); Creatinine, Blood 6.18 mg/dL (0.60-1.20); Glomerular Filtration Rate 10 (60-); Glucose, Blood 102 mg/dL (70-99); Magnesium, Blood 2.5 mg/dL (1.6-2.4); Phosphorus, Blood 5.8 mg/dL (2.5-4.9); Sodium, Blood 136 mmol/L (136-145)
[2018-02-13 10:01] LABS: Hematocrit 28.7 % (37.0-53.0); Hemoglobin 8.9 g/dL (13.5-17.5)
[2018-02-13] MEDS ORDERED: FURO80 PO (10:14)
[2018-02-13 11:02] LABS: Albumin, Blood 2.8 g/dL (3.4-5.0); Anion Gap 12 mmol/L (6-16); Blood Urea Nitrogen 56 mg/dL (8-24); Bun/Creatinine Ratio 9.6 (12.0-20.0); CO2, Blood 29 mmol/L (21-32); Calcium, Blood 8.2 mg/dL (8.5-10.1); Chloride, Blood 93 mmol/L (98-108); Creatinine, Blood 5.85 mg/dL (0.60-1.20); Glomerular Filtration Rate 11 (60-); Glucose, Blood 188 mg/dL (70-99); Magnesium, Blood 2.4 mg/dL (1.6-2.4); Potassium, Blood 4.7 mmol/L (3.5-5.5); Sodium, Blood 134 mmol/L (136-145)
== END 2018-02-13 13:29 | disposition home or self-care (01) | DRG 291 ==
LOC: ER 16:27 → MEDS 16:28 → ER 17:50 → MEDS 18:24 → ENPENDDIS 02-13 10:03 → MEDS 02-13 13:29
PROVIDERS: Emergency Medicine; Hospitalist; Internal Medicine Nephrology
PROC: 5A1D70Z Performance of Urinary Filtration, Intermittent, Less than 6 Hours Per Day (ICD-10-PCS; principal; 2018-02-11)
PROC: 5A1D70Z Performance of Urinary Filtration, Intermittent, Less than 6 Hours Per Day (ICD-10-PCS; 2018-02-13)
DX: I13.2 Hypertensive heart and chronic kidney disease with heart failure and with stage 5 chronic kidney disease, or end stage renal disease (principal); N18.6 End stage renal disease; I50.30 Unspecified diastolic (congestive) heart failure; F11.20 Opioid dependence, uncomplicated; E87.1 Hypo-osmolality and hyponatremia; Z99.2 Dependence on renal dialysis; E87.5 Hyperkalemia; J45.909 Unspecified asthma, uncomplicated; G25.81 Restless legs syndrome; D63.1 Anemia in chronic kidney disease; G25.2 Other specified forms of tremor; R50.9 Fever, unspecified; R77.8 Other specified abnormalities of plasma proteins; R59.0 Localized enlarged lymph nodes; S80.869D Insect bite (nonvenomous), unspecified lower leg, subsequent encounter; W57.XXXD Bitten or stung by nonvenomous insect and other nonvenomous arthropods, subsequent encounter; Z86.79 Personal history of other diseases of the circulatory system; Z79.51 Long term (current) use of inhaled steroids; Z79.899 Other long term (current) drug therapy; Z88.1 Allergy status to other antibiotic agents; Z88.8 Allergy status to other drugs, medicaments and biological substances
CPT/HCPCS: 36415; 36430; 71046; 71250; 80047; 80048; 80053; 80069; 82947; 83735; 83880; 84100; 84145; 84484; 85014; 85018; 85025; 86850; 86900; 86901; 86923; 87040; 93005; 93010; 93971; 94640; 94760; 96372; 96374; 96375; 99285-25; G0378; J0610; J0881; J1644; J1815; P9016; Q0163

== ENCOUNTER 2018-02-26 10:30 | Emergency (ER) | payer MEDICARE, OTHER ==
[~2018-02-26] VITALS: Ht 167.6 cm; Wt 68.0 kg
[2018-02-26 10:55] LABS: BASOPHILS ABSOLUTE AUTO 0.12 K/mm3 (0.00-0.23); BASOPHILS PERCENT AUTO 1 % (0-2); EOSINOPHILS ABSOLUTE AUTO 0.66 K/mm3 (0.00-0.68); EOSINOPHILS PERCENT AUTO 6 % (0-6); Hematocrit 33.6 % (37.0-53.0); Hemoglobin 10.2 g/dL (13.5-17.5); IMMATURE GRAN ABSOLUTE AUTO 0.02 K/mm3 (0.00-0.10); IMMATURE GRAN PERCENT AUTO 0 % (0-1); LYMPHOCYTES ABSOLUTE AUTO 1.18 K/mm3 (0.84-5.20); LYMPHOCYTES PERCENT AUTO 10 % (21-46); MONOCYTES ABSOLUTE AUTO 1.23 K/mm3 (0.16-1.47); MONOCYTES PERCENT AUTO 11 % (4-13); Mean Corpuscular HGB 26.1 pg (26.0-34.0); Mean Corpuscular HGB Conc 30.4 g/dL (31.5-36.5); Mean Corpuscular Volume 86 fL (80-100); Mean Platelet Volume 9.5 fL (9.1-12.4); NEUTROPHILS ABSOLUTE AUTO 8.28 K/mm3 (1.96-9.15); NEUTROPHILS PERCENT AUTO 72 % (41-73); Platelet Count 342 K/mm3 (150-400); RDW Coefficient Variation 16.2 % (11.7-14.2); RDW Standard Deviation 50.6 fL (35.1-46.3); Red Blood Cell Count 3.91 M/mm3 (4.30-5.90); White Blood Cell Count 11.49 K/mm3 (4.00-11.30)
[2018-02-26 11:11] LABS: Albumin, Blood 3.6 g/dL (3.4-5.0); Albumin/Globulin Ratio 0.8 (0.8-1.8); Bilirubin, Total 0.8 mg/dL (0.1-1.0); Bun/Creatinine Ratio 8.9 (12.0-20.0); Calcium, Blood 9.2 mg/dL (8.5-10.1); Creatinine, Blood 6.1 mg/dL (0.60-1.20); Globulin, Blood 4.4 g/dL (2.2-4.0); Magnesium, Blood 2.5 mg/dL (1.6-2.4); Potassium, Blood 5.2 mmol/L (3.5-5.5); Troponin I 0.165 ng/mL (0.000-0.040)
[2018-02-26] MEDS ORDERED: PROM25 PO (12:04)
== END 2018-02-26 12:15 | disposition home or self-care (01) ==
LOC: ER 10:30
PROVIDERS: Emergency Medicine
DX: S50.862A Insect bite (nonvenomous) of left forearm, initial encounter (principal); R07.9 Chest pain, unspecified; R10.9 Unspecified abdominal pain; I10 Essential (primary) hypertension; J45.909 Unspecified asthma, uncomplicated; Z88.8 Allergy status to other drugs, medicaments and biological substances; Z88.1 Allergy status to other antibiotic agents; Z79.899 Other long term (current) drug therapy; W57.XXXA Bitten or stung by nonvenomous insect and other nonvenomous arthropods, initial encounter
CPT/HCPCS: 36415; 71046; 80053; 83735; 84484; 85025; 93005; 93010; 96374; 99284-25; J2550

== ENCOUNTER → 2018-05-22 | Outpatient (CLI) | payer MEDICARE, OTHER ==
[~2018-05-22] MED LIST changes: +ALBU2.5V5 NEB; +ALBU90OI INH; +DICL250 PO; +GABA600 PO; +PROM25 PO; +VELTASSA; +Vibramycin100 MG PO
[2018-05-22 17:47] LABS: Vancomycin, Random 15.2 ug/mL
== END | disposition home or self-care (01) ==
LOC: LAB 17:09 → LAB SHORT 17:09
PROVIDERS: Internal Medicine Nephrology
DX: Z51.81 Encounter for therapeutic drug level monitoring (principal); Z79.899 Other long term (current) drug therapy
CPT/HCPCS: 80202